=== PATIENT | male | born 1970 | race African-American/Black ===

== ENCOUNTER 2016-07-06 05:31 | Emergency (ER) | payer MEDICAID, MEDICARE ==
[~2016-07-06] VITALS: Ht 180.3 cm; Wt 68.0 kg
[~2016-07-06 05:31] MED LIST: ATOR10TA; BENA5TAB3; CARSR60; EFAV1TAB3; KEPP250; LACO100T2; LOPE2TAB26; METO-300; METO50TA95; NORV1; PREN1TAB22; [UNRECOGNIZED DRUG - CODE]
[2016-07-06 06:51] LABS: BASOPHILS % 1.4 % (0.0-2.0); EOSINOPHILS % 2.6 % (0.0-5.0); HEMATOCRIT. 42.8 % (42.0-52.0); HEMOGLOBIN. 14.1 g/dL (14.0-18.0); LYMPHOCYTES % 35.6 % (20.0-50.0); MEAN CORPUSCULAR HEMOGLOBIN 30.6 pg (28.0-32.0); MEAN CORPUSCULAR VOLUME 92.6 fL (80.0-94.0); MEAN PLATELET VOLUME 7.5 fl (7.4-10.4); NEUTROPHILS % 52.4 % (40.0-76.0); PLATELET 197 x1000/uL (130-400); RED BLOOD CELL COUNT 4.62 mill/uL (4.7-6.1); RED CELL DISTRIBUTION WIDTH 14.1 % (11.6-14.6); WHITE BLOOD COUNT 6.6 x1000/uL (4.5-11.0)
[2016-07-06 06:55] LABS: PARTIAL THROMBOPLASTIN TIME 26.1 sec (24.0-34.0); PROTHROMBIN TIME 10.7 sec
[2016-07-06] MEDS ORDERED: SODIUM CHLORIDE 0.9% 1,000 ML IV ONE (07:00)
[2016-07-06 07:02] LABS: ALANINE AMINOTRANSFERASE 40 IU/L (13-61); ALBUMIN 4.1 g/dL (3.4-5.0); ANION GAP 14; CALCIUM 9.4 mg/dL (8.5-10.1); CARBON DIOXIDE 23 mEq/L (21-32); CHLORIDE 108 mEq/L (98-107); INDEX HEMOLYSI 1 (1-3); INDEX ICTERIC 1 (1-4); INDEX LIPEMIC 1 (1-3); LIPASE 314 IU/L (73-393); UREA NITROGEN BLOOD 16 mg/dL (7-21); eGFR > 60 mL/min (>60)
[2016-07-06 07:03] LABS: TROPONIN I < 0.02 ng/mL (0.00-0.04)
[2016-07-06 10:20] VITALS: BP 125/77
== END 2016-07-06 10:43 | disposition home or self-care (01) ==
LOC: ER 05:50
DX: B20 Human immunodeficiency virus [HIV] disease (principal); R19.7 Diarrhea, unspecified; J40 Bronchitis, not specified as acute or chronic; R03.0 Elevated blood-pressure reading, without diagnosis of hypertension; G40.909 Epilepsy, unspecified, not intractable, without status epilepticus; Z86.19 Personal history of other infectious and parasitic diseases; Z86.59 Personal history of other mental and behavioral disorders
CPT/HCPCS: 36415; 71020; 80053; 83690; 84484; 85025; 85610; 85730; 93005; 96360; 96361; 99285; J7030

== ENCOUNTER 2017-05-27 18:38 | Emergency (ER) | payer MEDICARE, MEDICAID ==
[~2017-05-27] VITALS: Ht 177.8 cm; Wt 76.0 kg
[~2017-05-27 18:38] MED LIST changes: -METO-300; +METO-411
[2017-05-27] MEDS ORDERED: METHYLPREDNISOLONE SOD SUCC 125 MG/2 ML VIAL IV ONE (19:00)
[2017-05-27 22:14] VITALS: BP 127/86
== END 2017-05-27 22:46 | disposition home or self-care (01) ==
LOC: ER 18:38
DX: T78.1XXA Other adverse food reactions, not elsewhere classified, initial encounter (principal); I10 Essential (primary) hypertension; F12.10 Cannabis abuse, uncomplicated; X58.XXXA Exposure to other specified factors, initial encounter
CPT/HCPCS: 96374; 99284; J2930

== ENCOUNTER 2017-10-27 17:09 | Emergency (ER) | payer MEDICARE, MEDICAID ==
[~2017-10-27] VITALS: Ht 180.3 cm; Wt 81.0 kg
[~2017-10-27 17:09] MED LIST changes: -BENA5TAB3; +BENA5TAB6
[2017-10-27 17:16] VITALS: BP 102/59
== END 2017-10-27 18:48 | disposition left against medical advice (07) ==
LOC: ER 17:09
DX: Z53.21 Procedure and treatment not carried out due to patient leaving prior to being seen by health care provider (principal)

== ENCOUNTER 2017-10-27 22:23 | Emergency (ER) | payer MEDICARE, MEDICAID ==
[~2017-10-27] VITALS: Ht 180.3 cm; Wt 72.0 kg
[2017-10-28 07:41] VITALS: BP 103/54
== END 2017-10-28 07:44 | disposition home or self-care (01) ==
LOC: ER 22:23
DX: D17.9 Benign lipomatous neoplasm, unspecified (principal); I10 Essential (primary) hypertension
CPT/HCPCS: 99282; 99283

== ENCOUNTER 2017-11-01 18:25 | Emergency (ER) | payer MEDICARE, MEDICAID ==
[~2017-11-01] VITALS: Ht 182.9 cm; Wt 72.0 kg
[2017-11-01 23:06] VITALS: BP 116/71
== END 2017-11-02 | disposition home or self-care (01) ==
LOC: ER 18:25
DX: F41.1 Generalized anxiety disorder (principal); R45.851 Suicidal ideations; F32.9 Major depressive disorder, single episode, unspecified; G40.909 Epilepsy, unspecified, not intractable, without status epilepticus; I10 Essential (primary) hypertension; Z86.19 Personal history of other infectious and parasitic diseases
CPT/HCPCS: 99284

== ENCOUNTER 2017-11-24 03:58 | Emergency (ER) | payer MEDICARE, MEDICAID ==
[~2017-11-24] VITALS: Ht 177.8 cm; Wt 59.0 kg
[2017-11-24] MEDS ORDERED: TRAMADOL 50MG TABLET PO ONE (06:45)
[2017-11-24] MEDS ORDERED: KETOROLAC 60MG/2ML VIAL IM ONE (06:45)
[2017-11-24 07:17] LABS: BASOPHILS % 0.9 % (0.0-2.0); EOSINOPHILS % 3.6 % (0.0-5.0); HEMATOCRIT. 39.3 % (42.0-52.0); HEMOGLOBIN. 13.1 g/dL (14.0-18.0); LYMPHOCYTES % 49.4 % (20.0-50.0); MEAN CORPUSCULAR HEMOGLOBIN 31.3 pg (28.0-32.0); MEAN CORPUSCULAR VOLUME 94.2 fL (80.0-94.0); MEAN PLATELET VOLUME 7.1 fl (7.4-10.4); NEUTROPHILS % 38.1 % (40.0-76.0); PLATELET 175 x1000/uL (130-400); RED BLOOD CELL COUNT 4.17 mill/uL (4.7-6.1); RED CELL DISTRIBUTION WIDTH 15.6 % (11.6-14.6)
[2017-11-24 07:25] LABS: CHLORIDE 106 mEq/L (98-107)
[2017-11-24 07:57] VITALS: BP 104/63
== END 2017-11-24 07:58 | disposition home or self-care (01) ==
LOC: ER 03:58
DX: B20 Human immunodeficiency virus [HIV] disease (principal); G99.0 Autonomic neuropathy in diseases classified elsewhere; F41.9 Anxiety disorder, unspecified; I10 Essential (primary) hypertension; K76.9 Liver disease, unspecified; G40.909 Epilepsy, unspecified, not intractable, without status epilepticus
CPT/HCPCS: 36415; 80048; 85025; 99284

== ENCOUNTER 2018-01-05 13:29 | Emergency (ER) | payer MEDICARE, MEDICAID ==
[~2018-01-05] VITALS: Ht 185.4 cm; Wt 85.0 kg
[2018-01-05 13:45] VITALS: BP 124/86
== END 2018-01-05 18:40 | disposition left against medical advice (07) ==
LOC: ER 13:29
DX: Z53.21 Procedure and treatment not carried out due to patient leaving prior to being seen by health care provider (principal)

== ENCOUNTER 2018-08-02 04:07 | Emergency (ER) | payer MEDICARE, MEDICAID ==
[2018-08-02] MEDS ORDERED: SODIUM CHLORIDE 0.9% 1,000 ML IV ONE (04:49)
[2018-08-02] MEDS ORDERED: DICYCLOMINE 10 MG/5 ML ORAL SYR PO STA (04:49)
[2018-08-02 05:12] LABS: EOSINOPHILS % 2.9 % (0.0-5.0); HEMATOCRIT. 43.4 % (42.0-52.0); HEMOGLOBIN. 14.5 g/dL (14.0-18.0); LYMPHOCYTES % 29.5 % (20.0-50.0); MEAN CORPUSCULAR HEMOGLOBIN 30.7 pg (28.0-32.0); MEAN CORPUSCULAR VOLUME 91.7 fL (80.0-94.0); MEAN PLATELET VOLUME 7.5 fl (7.4-10.4); MONOCYTES % 7.3 % (2.0-8.0); NEUTROPHILS % 59.3 % (40.0-76.0); PLATELET 173 x1000/uL (130-400); RED BLOOD CELL COUNT 4.73 mill/uL (4.7-6.1); RED CELL DISTRIBUTION WIDTH 14.1 % (11.6-14.6)
[2018-08-02 05:15] LABS: CHLORIDE 114 mEq/L (98-107)
[2018-08-02 07:05] VITALS: BP 110/58
== END 2018-08-02 07:06 | disposition home or self-care (01) ==
LOC: ER 04:07
DX: R19.7 Diarrhea, unspecified (principal); G40.909 Epilepsy, unspecified, not intractable, without status epilepticus
CPT/HCPCS: 36415; 80053; 83690; 85025; 96360; 99283; J7030

== ENCOUNTER 2018-10-25 19:08 | Emergency (ER) | payer MEDICARE, MEDICAID ==
[~2018-10-25] VITALS: Ht 177.8 cm; Wt 79.0 kg
[2018-10-25] MEDS ORDERED: DIPHENHYDRAMINE 25MG CAPSULE PO ONE (22:00)
[2018-10-25] MEDS ORDERED: PREDNISONE 20MG TABLET PO ONE (22:00)
[2018-10-25] MEDS ORDERED: FAMOTIDINE 20MG TABLET PO ONE (22:00)
[2018-10-25 22:39] VITALS: BP 121/60
== END 2018-10-25 22:30 | disposition home or self-care (01) ==
LOC: ER 19:08
DX: T78.1XXA Other adverse food reactions, not elsewhere classified, initial encounter (principal); G40.909 Epilepsy, unspecified, not intractable, without status epilepticus; Z91.018 Allergy to other foods; X58.XXXA Exposure to other specified factors, initial encounter
CPT/HCPCS: 99284; J7512; Q0163

== ENCOUNTER 2019-03-31 17:15 | Emergency (ER) | payer MEDICARE, MEDICAID ==
[~2019-03-31] VITALS: Ht 172.7 cm; Wt 82.0 kg
[2019-03-31] MEDS ORDERED: IBUPROFEN 600MG TABLET PO ONE (18:15)
[2019-03-31 19:21] VITALS: BP 100/78
== END 2019-03-31 19:20 | disposition home or self-care (01) ==
LOC: ER 17:15
DX: R51 Headache (principal); E11.9 Type 2 diabetes mellitus without complications; F32.9 Major depressive disorder, single episode, unspecified; G40.909 Epilepsy, unspecified, not intractable, without status epilepticus; Z91.018 Allergy to other foods
CPT/HCPCS: 99283

== ENCOUNTER 2019-08-23 22:46 | Emergency (ER) | payer MEDICARE, MEDICAID ==
[~2019-08-23] VITALS: Ht 177.8 cm; Wt 82.0 kg
[2019-08-23] MEDS ORDERED: KETOROLAC 60MG/2ML VIAL IM ONE (23:15)
[2019-08-23] MEDS ORDERED: CYCLOBENZAPRINE 10MG TABLET PO ONE (23:15)
[2019-08-23] MEDS ORDERED: GABAPENTIN 300MG CAPSULE PO ONE (23:15)
[2019-08-24 00:31] VITALS: BP 134/78
== END 2019-08-24 02:10 | disposition home or self-care (01) ==
LOC: ER 22:46
DX: G62.9 Polyneuropathy, unspecified (principal); Z20.828 Contact with and (suspected) exposure to other viral communicable diseases; Z91.018 Allergy to other foods; Z79.899 Other long term (current) drug therapy
CPT/HCPCS: 99283; U0003

== ENCOUNTER 2020-12-29 12:06 | Emergency (ER) | payer MEDICARE, MEDICAID ==
[~2020-12-29] VITALS: Ht 182.9 cm; Wt 90.0 kg
[2020-12-29 13:20] VITALS: BP 121/75
== END 2020-12-29 18:02 | disposition home or self-care (01) ==
LOC: ER 12:06
DX: R10.13 Epigastric pain (principal); R19.7 Diarrhea, unspecified; Z91.018 Allergy to other foods
CPT/HCPCS: 99281

== ENCOUNTER 2021-02-09 16:20 | Emergency (ER) | payer MEDICARE, MEDICAID ==
[~2021-02-09] VITALS: Ht 177.8 cm; Wt 100.0 kg
[2021-02-09 16:56] VITALS: BP 121/90
== END 2021-02-09 22:50 | disposition left against medical advice (07) ==
LOC: ER 16:20
DX: Z53.21 Procedure and treatment not carried out due to patient leaving prior to being seen by health care provider (principal)

== ENCOUNTER 2021-03-07 21:41 | Emergency (ER) | payer MEDICARE, MEDICAID ==
[~2021-03-07] VITALS: Ht 180.3 cm; Wt 82.0 kg
[2021-03-08 05:20] VITALS: BP 135/76
== END 2021-03-08 05:24 | disposition home or self-care (01) ==
LOC: ER 21:41
DX: H91.91 Unspecified hearing loss, right ear (principal); Z59.819 Housing instability, housed unspecified; F32.9 Major depressive disorder, single episode, unspecified; Z86.73 Personal history of transient ischemic attack (TIA), and cerebral infarction without residual deficits; Z79.899 Other long term (current) drug therapy
CPT/HCPCS: 99283

== ENCOUNTER 2021-06-03 15:40 | Emergency (ER) | payer MEDICARE, MEDICAID ==
[~2021-06-03] VITALS: Ht 180.3 cm; Wt 78.0 kg
[2021-06-03] MEDS ORDERED: IBUPROFEN 400MG TABLET PO ONE (18:00)
[2021-06-03 20:44] VITALS: BP 123/76
== END 2021-06-03 20:46 | disposition home or self-care (01) ==
LOC: ER 15:40
DX: M16.12 Unilateral primary osteoarthritis, left hip (principal); F32.9 Major depressive disorder, single episode, unspecified; B20 Human immunodeficiency virus [HIV] disease; Z86.73 Personal history of transient ischemic attack (TIA), and cerebral infarction without residual deficits; Z91.02 Food additives allergy status
CPT/HCPCS: 73502; 99283

== ENCOUNTER 2021-06-20 18:47 | Emergency (ER) | payer MEDICARE, MEDICAID ==
[~2021-06-20] VITALS: Ht 177.8 cm; Wt 81.0 kg
[2021-06-20 18:54] VITALS: BP 130/75
[2021-06-20] MEDS ORDERED: ACETAMINOPHEN 325MG TABLET PO ONE (19:15)
[2021-06-20] MEDS ORDERED: TERB30CR8 TP (19:21)
== END 2021-06-20 19:45 | disposition home or self-care (01) ==
LOC: ER 18:47
DX: B35.3 Tinea pedis (principal); L84 Corns and callosities; B20 Human immunodeficiency virus [HIV] disease; I10 Essential (primary) hypertension
CPT/HCPCS: 99282

== ENCOUNTER 2022-06-25 05:30 | Emergency (ER) | payer MEDICARE, MEDICAID ==
[~2022-06-25] VITALS: Ht 177.8 cm; Wt 82.0 kg
[~2022-06-25 05:30] MED LIST changes: +BENA5TAB40; -BENA5TAB6; +BICT1TAB PO; +CALC-1042 MT; +TERB30CR8 TP; +[UNRECOGNIZED DRUG - CODE] PO
[2022-06-25 05:33] VITALS: BP 133/94
[2022-06-25] MEDS ORDERED: SODIUM CHLORIDE 0.9% 1,000 ML IV ONE (06:15)
[2022-06-25 06:39] LABS: EOSINOPHILS % 4.1 % (0.0-5.0); HEMATOCRIT. 46.4 % (42.0-52.0); HEMOGLOBIN. 15.5 g/dL (14.0-18.0); LYMPHOCYTES % 30.9 % (20.0-50.0); MEAN CORPUSCULAR HEMOGLOBIN 29.9 pg (28.0-32.0); MEAN CORPUSCULAR VOLUME 89.5 fL (80.0-94.0); MONOCYTES % 9.6 % (2.0-8.0); NEUTROPHILS % 54.4 % (40.0-76.0); PLATELET 289 x1000/uL (130-400); RED BLOOD CELL COUNT 5.18 mill/uL (4.7-6.1); RED CELL DISTRIBUTION WIDTH 14.6 % (11.6-14.6)
[2022-06-25 06:44] LABS: CHLORIDE 107 mEq/L (98-107)
== END 2022-06-25 10:02 | disposition home or self-care (01) ==
LOC: ER 05:32
DX: J18.9 Pneumonia, unspecified organism (principal); R05.9 Cough, unspecified; F41.9 Anxiety disorder, unspecified; F32.A Depression, unspecified; Z86.73 Personal history of transient ischemic attack (TIA), and cerebral infarction without residual deficits; Z91.018 Allergy to other foods
CPT/HCPCS: 36415; 71046; 80053; 83605; 83735; 84145; 85025; 96360; 99284; J7030

== ENCOUNTER 2023-04-21 06:24 | Emergency (ER) | payer MEDICARE, MEDICAID ==
[~2023-04-21] VITALS: Ht 182.9 cm; Wt 82.0 kg
[2023-04-21 06:57] VITALS: O2SAT 99
[2023-04-21] MEDS: ACETAMINOPHEN 325MG TABLET PO STA (07:03)
[2023-04-21] MEDS: GABAPENTIN 100MG CAPSULE PO ONE (07:15)
[2023-04-21 07:51] LABS: BASOPHILS % 3.3 % (0.0-2.0); EOSINOPHILS % 3.4 % (0.0-5.0); HEMATOCRIT. 49.8 % (42.0-52.0); HEMOGLOBIN. 16.7 g/dL (14.0-18.0); LYMPHOCYTES % 47.1 % (20.0-50.0); MEAN CORPUSCULAR HGB CONC 33.6 g/dL (31.0-37.0); MEAN CORPUSCULAR VOLUME 92.2 fL (80.0-94.0); MEAN PLATELET VOLUME 7.5 fl (7.4-10.4); MONOCYTES % 8.9 % (2.0-8.0); NEUTROPHILS % 37.3 % (40.0-76.0); PLATELET 215 x1000/uL (130-400); RED CELL DISTRIBUTION WIDTH 13.7 % (11.6-14.6); WHITE BLOOD COUNT 4.7 x1000/uL (4.5-11.0)
[2023-04-21 08:05] LABS: PROTHROMBIN TIME 10.4 sec (9.6-11.0)
[2023-04-21 08:06] LABS: ALANINE AMINOTRANSFERASE 22 IU/L (10-49); ALBUMIN 4.9 g/dL (3.2-4.8); ASPARTATE AMINOTRANSFERASE 26 IU/L (<34); BILIRUBIN TOTAL 0.4 mg/dL (0.1-1.0); CALCIUM 10.2 mg/dL (8.7-10.4); CARBON DIOXIDE 28 mEq/L (21-32); CHLORIDE 106 mEq/L (98-107); GLUCOSE 100 mg/dL (70-105); POTASSIUM 4.4 mEq/L (3.5-5.1); PROTEIN TOTAL 8.4 g/dL (6.0-8.3); SODIUM 142 mEq/L (136-145); UREA NITROGEN BLOOD 12 mg/dL (9-23)
[2023-04-21] MEDS: GABAPENTIN 100MG CAPSULE PO NR (09:45)
[2023-04-21] MEDS: ACETAMINOPHEN 325MG TABLET PO NR (09:45)
[2023-04-21 10:18] LABS: CLARITY URINE CLEAR (CLEAR); COLOR URINE YELLOW (YELLOW); GLUCOSE URINE NEGATIVE (NEGATIVE); KETONES URINE NEGATIVE (NEGATIVE); LEUKOCYTE ESTERASE URINE NEGATIVE (NEGATIVE); NITRITE URINE NEGATIVE (NEGATIVE); OCCULT BLOOD URINE NEGATIVE (NEGATIVE); PH URINE 6.5 (4.5-8.0); PROTEIN URINE NEGATIVE (NEGATIVE); SPECIFIC GRAVITY URINE 1.019 (1.005-1.030)
[2023-04-21] MEDS ORDERED: TOPUD PO (11:26)
[2023-04-21] MEDS ORDERED: GABA-529 PO (11:26)
[2023-04-21 11:50] VITALS: BP 133/85; PULSE 75; RESP 18; TEMP 98.1
== END 2023-04-21 12:17 | disposition home or self-care (01) ==
LOC: ER 06:24
DX: G62.9 Polyneuropathy, unspecified (principal)
CPT/HCPCS: 36415; 73620; 80053; 81003; 85025; 99284